=== PATIENT | female | born 1960 | race Caucasian/White ===

== ENCOUNTER 2017-03-08 06:28 | Day surgery (SDC) | payer BC ==
[2017-03-07 16:44] VITALS: BMI 23.2
[2017-03-08] MEDS ORDERED: Oxymetazoline HCl 0.05% ( 15 ML ) ONE (07:32)
[2017-03-08 07:45] LABS: Hematocrit 41.3 % (36.0-47.0)
[2017-03-08] MEDS ORDERED: Fentanyl 250 MCG/5 ML VIAL ONE (08:31)
[2017-03-08] MEDS ORDERED: PHENYLEPHRINE-NS 100 MCG/ML 10 ML SYRINGE ONE (08:50)
[2017-03-08] MEDS ORDERED: Glycopyrrolate 0.2 MG/ML 5 ML SYRINGE ONE (08:50)
[2017-03-08] MEDS ORDERED: Ondansetron HCl/PF 4 MG/2 ML Vial ONE (08:50)
[2017-03-08] MEDS ORDERED: Lidocaine 2% PF 10 ML AMP (For Epidural Use) ONE (08:50)
[2017-03-08] MEDS ORDERED: Dexamethasone 20 MG/5 ML VIAL ONE (08:50)
[2017-03-08] MEDS ORDERED: Propofol 200 MG/20 ML VIAL ONE (08:50)
[2017-03-08] MEDS ORDERED: Bupivacaine HCl 0.5%/Epinephrine 1:200,000/PF 30 ml Vial ONE (08:58)
[2017-03-08] MEDS ORDERED: Bacitracin Zinc Ointment 30 gm TUBE ONE (09:11)
[2017-03-08] MEDS ORDERED: Fentanyl 100 MCG/2 ML VIAL ONE (09:58)
[2017-03-08] MEDS ORDERED: Hydrocodone-Acetamin 15 ML UDCUP ONE (11:05)
--- NOTE | 2017-03-09 09:37 | OP ---
DATE OF PROCEDURE: 03/08/2017 PREOPERATIVE DIAGNOSES: 1. Chronic rhinosinusitis. 2. Nasal septal deviation. 3. Bilateral inferior turbinate hypertrophy. 4. Nasal obstruction. POSTOPERATIVE DIAGNOSES: 1. Chronic rhinosinusitis. 2. Nasal septal deviation. 3. Bilateral inferior turbinate hypertrophy. 4. Nasal obstruction. PROCEDURES: 1. Bilateral endoscopic sinus surgery, total ethmoidectomies. 2. Bilateral endoscopic sinus surgery, maxillary antrostomies. 3. Bilateral endoscopic sinus surgery, frontal sinusotomies. 4. Nasal septoplasty. 5. Bilateral inferior turbinate submucosal resection. SURGEON: Champ Del Cid M.D. ESTIMATED BLOOD LOSS: 50 mL. COMPLICATIONS: None. ANESTHESIA: GETA. PROCEDURE IN DETAIL: Patient was taken to the operating room and placed supine on the table. Gener al endotracheal anesthesia was obtained by the Anesthesia staff. Tube was secured in the left lower lip. Patient was then placed in the beach chair position, and Afrin pledgets were placed in the na reynaldo cavity. Injections of 1% lidocaine with 1:100,000 epinephrine were made into the nasal septum a s well as the inferior turbinates. Patient was then prepped and draped in standard surgical fashion for nasal surgery. Following this, the Afrin pledgets were removed. A Hubbard incision was made o n the left nasal septum. Submucoperichondrial dissection was performed. The deviated portions of t he septum included portions of the cartilage and the bony septum. These isolated areas were removed using three cutting rongeurs. There was noted to be a large dorsal and caudal strut, left intact f or support of the nose. The mucoperichondrial flaps were then reapproximated using a 4-0 gut stitch. Any straight pieces of car tilage were crushed prior to this and placed between the mucoperichondrial flaps. Following this, th e inferior turbinates were then punctured with a submucosal coblation wand, and submucosal coblation s were performed of multiple areas of the inferior portion of the anterior inferior turbinate. Please note that the microdebrider was used to submucosally resect the anterior and inferior portion s of the inferior turbinates bilaterally. Following this, the inferior turbinates were then lateral ly fractured with a [place] elevator. The 0 degree scope was advanced to the middle meatus. The midd le turbinates were gently medialized with [place] elevator and the uncinate process was identified josse aterally. Following this, the ball ended probe was used to anteriorly fracture the uncinate process and remove the uncinate process with upbiting Blakesley forceps and microdebrider. Following this, the natural maxillary ostia were gently identified using the ball ended probe was then widened usin g the straight [place] forceps and microdebrider bilaterally. Following this, the ethmoidal bulla was identified and was punctured on its medial and inferior aspect and was removed. The grand lame lla was then identified and was punctured in the posterior ethmoidal cells. Working from posterior and anterior, the ethmoidal cells were opened in a mucosal-sparing technique. Following this, a 45 degree scope and the upbiting microdebrider were then used to further open the frontal recess cells as well as the frontal sinus ostia cells bilaterally. Following this, the nasal cavity was irrigate d. MeroPacks were placed within the middle meatus. Anderson splints were placed and secured.
--- NOTE | 2017-03-10 15:57 | EKG ---
Test Reason : PREOP Blood Pressure : / mmHG Vent. Rate : 067 BPM Atrial Rate : 067 BPM P-R Int : 160 ms QRS Dur : 090 ms QT Int : 424 ms P-R-T Axes : 066 057 032 degrees QTc Int : 448 ms Normal sinus rhythm Normal ECG No previous ECGs available Confirmed by DR. Breezy GALAVIZ ([id number]) on 03/10/2017 3:56:37 PM Referred By: WILLIAN Confirmed By:DR. Breezy GALAVIZ
== END 2017-03-08 11:20 | disposition home or self-care (01) ==
LOC: SDC 06:28
PROVIDERS: ATTEND Otolaryngology Plastic Surgery within the Head & Neck
PROC: 09TU8ZZ Resection of Right Ethmoid Sinus, Via Natural or Artificial Opening Endoscopic (ICD-10-PCS; principal; 2017-03-08)
PROC: 099S8ZZ Drainage of Right Frontal Sinus, Via Natural or Artificial Opening Endoscopic (ICD-10-PCS; principal; 2017-03-08)
PROC: 09BM0ZZ Excision of Nasal Septum, Open Approach (ICD-10-PCS; principal; 2017-03-08)
PROC: 099Q8ZZ Drainage of Right Maxillary Sinus, Via Natural or Artificial Opening Endoscopic (ICD-10-PCS; principal; 2017-03-08)
PROC: 09TV8ZZ Resection of Left Ethmoid Sinus, Via Natural or Artificial Opening Endoscopic (ICD-10-PCS; principal; 2017-03-08)
PROC: 099R8ZZ Drainage of Left Maxillary Sinus, Via Natural or Artificial Opening Endoscopic (ICD-10-PCS; principal; 2017-03-08)
PROC: 099T8ZZ Drainage of Left Frontal Sinus, Via Natural or Artificial Opening Endoscopic (ICD-10-PCS; principal; 2017-03-08)
DX: J32.9 Chronic sinusitis, unspecified (principal); J34.2 Deviated nasal septum; J34.3 Hypertrophy of nasal turbinates; Z88.2 Allergy status to sulfonamides; Z79.899 Other long term (current) drug therapy
CPT/HCPCS: 36415; 85014; 93005; 93010; 96374; J0670; J1100; J2001; J2405; J2704; J3010